=== PATIENT | male | born 1990 | race Caucasian/White ===

== ENCOUNTER 2025-11-10 14:18 | Inpatient (IN) | payer OTHER ==
[~2025-11-10] VITALS: Ht 167.6 cm; Wt 91.8 kg
[2025-11-10] MEDS ORDERED: ACETAMINOPHEN 325 MG TABLET PO PRN (15:45)
[2025-11-10] MEDS ORDERED: MAGNESIUM HYDROXIDE SUSPENSION 30 ML UDCUP PO PRN (15:45)
[2025-11-10] MEDS ORDERED: ONDANSETRON HCL 4 MG/2 ML VIAL IVP PRN (15:45)
[2025-11-10 16:19] LABS: PLATELET COUNT (AUTO) 234 K/uL (150-450); RED BLOOD CELL COUNT(AUTO) 5.33 MIL/uL (4.50-5.90); RED CELL DISTRIBUTION WIDTH 14.0 % (11.5-14.5); WHITE BLOOD COUNT (AUTO) 8.4 K/uL (4.5-11.0)
[2025-11-10] MEDS: IOHEXOL 9 MG/ML 500 ML BOTTLE PO ONE (16:29)
[2025-11-10 16:31] LABS: CALCIUM, TOTAL 9.1 mg/dL (8.8-10.5); CREATININE 0.74 mg/dL (0.60-1.30); GLOMERULAR FILTR. RATE CALC > 60 mL/min (>60); GLUCOSE,RANDOM 95 mg/dL (70-110); SODIUM SERUM 138 mmol/L (136-145); UREA NITROGEN, BLOOD 11 mg/dL (7-18)
[2025-11-10] MEDS: MORPHINE SULFATE 4 MG/ML SYRINGE IVP ONE (17:21)
[2025-11-10] MEDS: ONDANSETRON HCL 4 MG/2 ML VIAL IVP ONE (17:21)
[2025-11-10 18:14] VITALS: BP 135/80; PULSE 96; RESP 20; TEMP 97.7; O2SAT 99
[2025-11-10 18:15] LABS: APPEARANCE,URINE CLEAR (CLEAR); GLUCOSE, URINE (UA) NEGATIVE (NEGATIVE); LEUKOCYTE ESTERASE ,URINE NEGATIVE (NEGATIVE); NITRATE,URINE NEGATIVE (NEGATIVE); OCCULT BLOOD,URINE NEGATIVE (NEGATIVE); SPECIFIC GRAVITIY, URINE 1.009 (1.003-1.030)
[2025-11-10 18:58] LABS: SQUAMOUS EPITHELIAL CELL,UR Rare /LPF (None Seen)
[2025-11-10] MEDS: DOCUSATE SODIUM 100 MG CAPSULE PO SCH (20:26)
[2025-11-10] MEDS: MORPHINE SULFATE 4 MG/ML SYRINGE IVP PRN (20:26)
[2025-11-10 20:30] VITALS: BP 120/76; PULSE 74; RESP 18; TEMP 98.2; O2SAT 99
[2025-11-11] MEDS: CeFAZolin 2 GM/DEXTROSE 50 ML IV SCH ×2 (08:29→23:05)
[2025-11-11] MEDS: PANTOPRAZOLE SODIUM 40 MG/VIAL IVP SCH (08:30)
[2025-11-11 09:15] VITALS: BP 125/83; PULSE 69; RESP 18; TEMP 98.1; O2SAT 99
[2025-11-11] MEDS: CHLORHEXIDINE GLUCONATE 2% TOWELETTE [2'S/6'S] TP ONE (10:04)
[2025-11-11] MEDS ORDERED: RINGERS SOLUTION,LACTATED 1,000 ML IV ONE ×2 (10:23→16:42)
[2025-11-11] MEDS ORDERED: PHENYLEPHRINE HCL 10 MG/ML VIAL ONE (12:00)
[2025-11-11] MEDS ORDERED: GLYCOPYRROLATE 0.2 MG/ML VIAL ONE (12:00)
[2025-11-11] MEDS ORDERED: ONDANSETRON HCL 4 MG/2 ML VIAL ONE (12:00)
[2025-11-11] MEDS ORDERED: METOCLOPRAMIDE HCL 5 MG/ML 2 ML VIAL ONE (12:00)
[2025-11-11] MEDS ORDERED: PROPOFOL 1% ISO-OSM 1000 MG/100 ML BOTTLE ONE (12:00)
[2025-11-11] MEDS ORDERED: DEXAMETHASONE SOD PHOS 4 MG/ML VIAL ONE (12:00)
[2025-11-11] MEDS ORDERED: KETOROLAC TROMETHAMINE 60 MG/2 ML VIAL IM ONE (12:00)
[2025-11-11] MEDS ORDERED: LIDOCAINE/PF 2% 5 ML VIAL ONE (12:00)
[2025-11-11] MEDS ORDERED: SUCCINYLCHOLINE CHLORIDE 20 MG/ML 10 ML VIAL ONE (12:00)
[2025-11-11] MEDS: RINGERS SOLUTION,LACTATED 1,000 ML IV ONE (13:05)
[2025-11-11] MEDS: ETHYL ALCOHOL 62% ANTISEPTIC NASAL SANITIZER 0.6 ML AMPUL NASAL ONE (13:05)
[2025-11-11] MEDS: LIDOCAINE 2%/EPI 1:200,000/PF 20 ML VIAL ONE (16:30)
[2025-11-11] MEDS: BUPIVACAINE HCL/PF 0.5% 30 ML VIAL ONE (16:30)
[2025-11-11] MEDS ORDERED: ONDANSETRON HCL 4 MG/2 ML VIAL IVP PRN (17:45)
[2025-11-11 20:13] VITALS: BP 135/78; PULSE 99; RESP 18; TEMP 98.4; O2SAT 97
[2025-11-12 04:50] VITALS: BP 123/71; PULSE 98; RESP 18; TEMP 98.2; O2SAT 98
[2025-11-12 08:20] VITALS: BP 122/63; PULSE 99; RESP 18; TEMP 98.2; O2SAT 95
[2025-11-12] MEDS: HYDROCODONE/ACETAMINOPHEN 5-325 MG TABLET PO PRN (09:23)
[2025-11-12] MEDS ORDERED: DOCU-385 PO (15:25)
[2025-11-12] MEDS ORDERED: ACET-2247 PO (15:27)
[2025-11-12] MEDS ORDERED: MAGN-169 PO (15:28)
[2025-11-12 15:44] VITALS: BP 114/66; PULSE 98; RESP 18; TEMP 97.8; O2SAT 95
[2025-11-12] MEDS ORDERED: FentaNYL CITRATE PF 100 MCG/2 ML VIAL IVP ONE (20:50)
[2025-11-12] MEDS ORDERED: MIDAZOLAM HCL 2 MG/2 ML VIAL IVP ONE (20:50)
== END 2025-11-12 20:51 | DRG 352 ==
LOC: EMS 14:18 → EDH 15:37 → 4S 17:47
PROVIDERS: ADMIT Internal Medicine; ATTEND Internal Medicine
PROC: 0YU60JZ Supplement Left Inguinal Region with Synthetic Substitute, Open Approach (ICD-10-PCS; principal; 2025-11-11 16:00)
DX: K40.90 Unilateral inguinal hernia, without obstruction or gangrene, not specified as recurrent (principal); E66.9 Obesity, unspecified; Z68.32 Body mass index [BMI] 32.0-32.9, adult
CPT/HCPCS: 80048; 81001; 85025; 87081; 88302; 96374; 96375; 99285; G0378; J0330; J0690; J1100; J1171; J1885; J2250; J2270; J2405; J2470; J2704; J2765; J3010; J3490; J7120; 36415-L1; 36415-TC; Z7610